=== PATIENT | male | born 1980 | race Two or more races ===

== ENCOUNTER 2018-07-11 10:46 | Inpatient (IN) | payer BC, OTHER ==
[~2018-07-11] VITALS: Ht 180.3 cm; Wt 95.3 kg
--- NOTE | 2018-07-11 10:27 | NUR ---
PRE-ASSESSMENT: ASSESSED PT IN INTAKE OFFICE, PT IS IN STABLE CONDITION , COMPLIANT AND COOPERATIVE. PT'S V/S WNL and is in moderate withdrawal he is being [facility] and last drank 07/10/18, explained protocols and procedure to pt and he verbalized understanding
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
[2018-07-11 12:00] VITALS: BP 139/89
--- NOTE | 2018-07-11 12:30 | NUR ---
CIWA Assessment: CIWA 12, patient continues to present with s/s of withdrawal m/b gross tremors, anxiety, agitation, sweating, fatigue, and generalized discomfort. Will continue to monitor.
[2018-07-11] MEDS ORDERED: LORAZEPAM 2 MG/1 ML VIAL IM PRN (14:45)
[2018-07-11] MEDS ORDERED: LOPERAMIDE HCL 2 MG CAPSULE PO PRN ×2 (14:45)
[2018-07-11] MEDS ORDERED: ONDANSETRON ODT 4 MG TAB.RAPDIS SL PRN (14:45)
[2018-07-11] MEDS ORDERED: CLONIDINE HCL 0.1 MG TABLET PO PRN (14:45)
[2018-07-11] MEDS ORDERED: ONDANSETRON 4 MG/2 ML VIAL IM PRN (14:45)
[2018-07-11] MEDS ORDERED: diphenhydrAMINE 50 MG CAPSULE PO PRN (14:45)
[2018-07-11] MEDS ORDERED: DIAZEPAM 10 MG TABLET PO PRN ×2 (14:45)
[2018-07-11] MEDS ORDERED: 3 DAY TAPER OF VALIUM-SERENITY PROTOCOL PO PRN (14:45)
[2018-07-11] MEDS ORDERED: IBUPROFEN 600 MG TABLET PO PRN (14:45)
[2018-07-11] MEDS ORDERED: HYDROXYZINE PAMOATE 25 MG CAPSULE PO PRN (14:45)
[2018-07-11] MEDS ORDERED: DIAZEPAM 5 MG TABLET PO PRN (14:45)
[2018-07-11] MEDS ORDERED: THIAMINE HCL 200 MG/2 ML VIAL IM ONE (14:45)
--- NOTE | 2018-07-11 15:00 | NUR ---
Taper started: Patient was placed on a 3-day Valium taper as ordered at this time. Per BERTHA PARISI to start now. Addendum: 07/11/18 at 1819 by CESAR CALDERON LVN Note Clarification: Patient was placed on a 3-day Valium taper as ordered at this time. Per BERTHA PARISI to start now, without UDS.
[2018-07-11] MEDS: DIAZEPAM 10 MG TABLET PO SCH ×2 (15:32→20:23)
[2018-07-11 16:00] VITALS: BP 133/89
--- NOTE | 2018-07-11 16:05 | NUR ---
CIWA Assessment: CIWA 11, patient continues to present with s/s of withdrawal related to ETOH m/b increased anxiety, agitation, difficulty concentrating, gross tremors, diaphoresis, fatigue and generalized discomfort. Patient was started on 3-day Valium taper with first dose given at 1530. Will continue to monitor and medicate patient as ordered.
[2018-07-11 16:29] LABS: BASOPHILS % (AUTO) 0.7 % (0.0-2.0); EOSINOPHILS # (AUTO) 0.8 K/uL (0.0-0.7); EOSINOPHILS % (AUTO) 12.9 % (0.0-7.0); HEMATOCRIT 42.9 % (36.7-47.1); HEMOGLOBIN 14.7 g/dL (12.5-16.3); LYMPHOCYTES # (AUTO) 1.8 K/uL (20.0-40.0); LYMPHOCYTES % (AUTO) 31.2 % (20.5-51.5); MEAN CORPUSCULAR HEMOGLOBIN 33.5 uug (23.8-33.4); MEAN CORPUSCULAR HGB CONC 34 g/dL (32.5-36.3); MEAN CORPUSCULAR VOLUME 97.3 fL (73.0-96.2); MONOCYTES # (AUTO) 0.6 K/uL (2.0-10.0); MONOCYTES % (AUTO) 10.3 % (0.0-11.0); NEUTROPHILS # (AUTO) 2.7 K/uL (1.8-8.9); NEUTROPHILS % (AUTO) 44.9 % (38.5-71.5); PLATELET COUNT (AUTO) 165 K/uL (152-348); RED BLOOD CELL COUNT(AUTO) 4.41 MIL/uL (4.06-5.63); WHITE BLOOD COUNT (AUTO) 5.9 K/uL (3.6-10.2)
[2018-07-11 16:37] LABS: ETHANOL < 3 MG/DL (0-0)
[2018-07-11 16:41] LABS: ALANINE AMINOTRANSFERASE 204 U/L (16-63); ALKALINE PHOSPHATASE 122 U/L (50-136); AMYLASE 28 U/L (25-115); ASPARTATE AMINOTRANSFERASE 139 U/L (15-37); BILIRUBIN,TOTAL 0.6 mg/dL (0.2-1.0); CARBON DIOXIDE 26 mmol/L (21-32); CHLORIDE 102 mmol/L (98-107); CREATININE 1.1 mg/dL (0.6-1.3); GLUCOSE 111 mg/dL (74-106); LIPASE 226 U/L (73-393); MAGNESIUM 1.8 mg/dL (1.8-2.4); POTASSIUM 3.8 mmol/L (3.5-5.1); TOTAL PROTEIN, SERUM 6.9 g/dL (6.4-8.2); UREA NITROGEN, BLOOD 14 mg/dL (7-18)
[2018-07-11 17:20] LABS: THYROID STIMULATING HORMONE 2.159 mIU/mL (0.358-3.740)
--- NOTE | 2018-07-11 18:02 | NUR ---
Imodium 4 mg PO given: Patient reported x 3 episodes of loose watery stools. Oral fluids encouraged. Banana given. Medicated patient with Imodium 4 mg PO as ordered. Will monitor for effectiveness.
[2018-07-11 18:13] LABS: *AMPHETAMINE, URINE POSITIVE (NEGATIVE); *BARBITURATE, URINE NEGATIVE (NEGATIVE); *CANNABINOID, URINE NEGATIVE (NEGATIVE); *COCCAINE, URINE NEGATIVE (NEGATIVE); *OPIATE, URINE NEGATIVE (NEGATIVE); *PHENCYCLIDINE SCREEN,URINE NEGATIVE (NEGATIVE)
--- NOTE | 2018-07-11 19:05 | NUR ---
End of Shift Notes: Patient was admitted today for medically supervised ETOH withdrawal. He was placed on a 3-day Valium taper that started today at 1530. VS monitored closely. No significant abnormalities noted. Withdrawal symptoms were closely monitored. Initial CIWA upon admission 12, patient presented with gross tremors, anxiety, sweating, facial flushing, fatigue, generalized discomfort, diarrhea and diaphoresis. Medicated patient with Imodium 4 mg PO as ordered at 1802. Last CIWA 11. Patient verbalizes that Valium has been effective in reducing his withdrawal symptoms. Unable to participate in group and activities due to his withdrawal symptoms. Appetite good. All needs met and attended. Will continue to monitor closely.
--- NOTE | 2018-07-11 19:30 | NUR ---
START OF SHIFT Patient received awake, alert, and oriented x4. Noted to be hypervigilant, fidgety, anxious, worried affect, and restless. Patient was admitted today for ETOH withdrawal and was started on a 3 day Valium taper. Received first dose at 1530 and tolerated well. Patient also received PRN Imodium for loose stool. PRN med was effective with no further episodes of loose stool reported. Last noted CIWA is 11. Will continue to monitor.
--- NOTE | 2018-07-11 20:00 | NUR ---
CIWA Assessment: Patient continues to present with signs and symptoms of ETOH withdrawals m/b anxiety, restlessness, generalized weakness, tremors, intermittent sweats and chills, and hypervigilance. Patient continues on a 3 day taper of Valium. CIWA score is 11. Will continue to monitor.
[2018-07-11 20:09] VITALS: BP 152/77
[2018-07-12 00:12] VITALS: BP 120/73
--- NOTE | 2018-07-12 00:15 | NUR ---
CIWA Assessment: Patient continues to present with anxiety, restlessness, tremors, generalized discomfort, and intermittent chills and sweats. Patient denies the need for medication at the moment. Noted to be easily able to fall back asleep with no further complications. CIWA score is 8.
--- NOTE | 2018-07-12 00:17 | NUR ---
CIWA Assessment: Patient continues to present with signs and symptoms of ETOH withdrawals m/b anxiety, restlessness, generalized weakness, tremors, intermittent sweats and chills, and hypervigilance. Patient continues on a 3 day taper of Valium. CIWA score is 11. Will continue to monitor. Addendum: 07/12/18 at 0020 by OSEI ARGUETA LVN Entered in error - wrong time.
[2018-07-12 04:31] VITALS: BP 116/86
--- NOTE | 2018-07-12 04:37 | NUR ---
CIWA assessment Patient noted in bed with eyes closed and respirations even and unlabored. Vitals rendered. CIWA assessment was unable to be completed due to patient remaining asleep during vitals assessment. Will continue to monitor.
--- NOTE | 2018-07-12 07:07 | NUR ---
END OF SHIFT: Patient is noted lying in bed with eyes closed and even, unlabored respirations. Patient continues on a 3 day valium taper. Patient denies signs and symptoms of withdrawal, but is noted with restlessness, tremulous to touch, anxiety, and hypervigilance. Presents with a worried affect. No PRNs administered during this shift. Last noted CIWA is 8. Patient is noted to sleep 9 hours. All needs attended to promptly. Will endorse to continue plan of care as ordered.
[2018-07-12 08:00] VITALS: BP 117/60
--- NOTE | 2018-07-12 08:00 | NUR ---
Start of Shift Notes/CIWA Assessment: Received report from night nurse. Patient is a 38 year old male admitted for ETOH withdrawal that started his 3-day Valium taper on 07/11/2018 at 1500 yesterday. Taper to continue as scheduled today. Per night report, patient was not given any PRNs during the shift. Last CIWA 8. Slept for a total of 9 hours. Received patient in his room. Alert and oriented x 4. Denies S/I or H/I noted. No AV hallucinations noted. Patient appears flushed, hypervigilant and anxious. Diaphoresis and gross tremors visibly noted. CIWA 14. Educated patient on his current plan of care for the day and his medication regimen. Encouraged oral fluid intake and encouraged group participation to learn new skills to prevent relapse. All needs needs met and attended. Will continue to monitor closely.
[2018-07-12] MEDS: THIAMINE HCL 100 MG TABLET PO SCH (08:31)
[2018-07-12] MEDS: FOLIC ACID 1 MG TABLET PO SCH (08:31)
[2018-07-12] MEDS: MULTIVITAMINS,THERAPEUTIC TABLET PO SCH (08:31)
[2018-07-12] MEDS: DIAZEPAM 5 MG TABLET PO SCH ×3 (08:31→21:52)
[2018-07-12] MEDS ORDERED: TUBERCULIN,PURIF.PROT.DERIV. 5 TU/0.1 ML TEST ID ONE (09:00)
[2018-07-12 12:00] VITALS: BP 120/65
--- NOTE | 2018-07-12 12:40 | NUR ---
CIWA Assessment: CIWA 13, patient continues to present with s.s of withdrawal m/b gross tremors, anxiety, agitation, irritability, diaphoresis and generalized discomfort. Patient was unable to participate in group and activities and verbalizes feeling tired. Will continue to monitor and medicate patient as ordered.
--- NOTE | 2018-07-12 12:47 | NUR ---
Therapist prompted client to attend group therapy.
[2018-07-12 16:00] VITALS: BP 129/77
--- NOTE | 2018-07-12 16:44 | NUR ---
CIWA Assessment: CIWA 13, patient continues to present with ss/s of ETOH withdrawal m/b gross tremors, anxiety, agitation, fatigue, malaise, diaphoresis and generalized discomfort. Unable to participate in group and activities. Oral fluids encouraged.
--- NOTE | 2018-07-12 19:05 | NUR ---
End of Shift Notes: Patient continues to be on 3-day Valium taper as ordered to manage symptoms related to ETOH withdrawal. VS monitored closely. No significant abnormalities noted. Withdrawal symptoms were closely monitored. Initial CIWA upon admission 14, patient presented with gross tremors, anxiety, sweating, facial flushing, fatigue, generalized discomfort, and diaphoresis. Last CIWA 13. Patient verbalizes that Valium has been effective in reducing his withdrawal symptoms. Unable to participate in group and activities due to his withdrawal symptoms. Appetite good. All needs met and attended. Will continue to monitor closely.
--- NOTE | 2018-07-12 19:10 | NUR ---
Start of Shift Received 38 year old male pt admitted 07/11/18 to [facility] for medically supervised withdrawal from ETOH. Pt currently on day 2 of 3 day Valium taper which he is tolerating well. No PRN medications given during day shift. Last CIWA 13 @ 1600. Pt participating in group.
--- NOTE | 2018-07-12 20:00 | NUR ---
[place] [id number]
[2018-07-12 20:10] VITALS: BP 144/97
--- NOTE | 2018-07-13 00:08 | NUR ---
CIWA deferred/ Vitals refused CIWA deferred and vitals refused. Pt in bed resting with eyes closed. Respirations are even and unlabored.Bed low, side rails up x 2, call tilley in reach. Continue to monitor.
--- NOTE | 2018-07-13 04:10 | NUR ---
CIWA deferred/Vitals refused Pt resting with eyes closed. Respirations even and unlabored. CIWA deferred and vitals refused.
--- NOTE | 2018-07-13 06:47 | NUR ---
End of Shift Endorsing 38 year old male pt admitted 07/11/18 to [facility] for medically supervised withdrawal from ETOH. Pt currently on day 3 of 3 day Valium taper which he is tolerating well. No PRN medications given during battery mechanic. Last CIWA 12 @ 1999. PO intake 855ml, voided x 1, BM x 0, and slept 8 hours. Pt in bed resting with eyes closed. Respirations are even and unlabored. Bed low, side rails up x 2, call tilley in reach.
[2018-07-13 07:07] LABS: HEPATITIS B SURFACE AG Negative (Negative)
[2018-07-13 07:46] LABS: BILIRUBIN,TOTAL 0.3 mg/dL (0.2-1.0); CREATININE 0.9 mg/dL (0.6-1.3); POTASSIUM 4.1 mmol/L (3.5-5.1); TOTAL PROTEIN, SERUM 6.4 g/dL (6.4-8.2)
[2018-07-13 08:00] VITALS: BP 134/83
--- NOTE | 2018-07-13 08:07 | NUR ---
START OF SHIFT: Received Pt A/O X 4. He presents with anxious mood and congruent affect. He reports anxiety and restlessness. CIWA 8. Modified Valium taper in progress to manage s/s of w/d. He states he is attending groups. Encouraged increased fluids to assist in facilitating detox process. Will continue to monitor and offer support.
[2018-07-13] MEDS: MULTIVITAMINS,THERAPEUTIC TABLET PO SCH (08:44)
[2018-07-13] MEDS: THIAMINE HCL 100 MG TABLET PO SCH (08:44)
[2018-07-13] MEDS: FOLIC ACID 1 MG TABLET PO SCH (08:44)
[2018-07-13] MEDS: DIAZEPAM 5 MG TABLET PO SCH ×2 (08:44→22:33)
--- NOTE | 2018-07-13 10:11 | NUR ---
therapist prompted client to attend group therapy.
[2018-07-13 12:00] VITALS: BP 147/94
--- NOTE | 2018-07-13 12:20 | NUR ---
Noon CIWA 8 he reports anxiety,restlessness and intermittent sweats.
[2018-07-13 16:00] VITALS: BP 119/72
--- NOTE | 2018-07-13 18:49 | NUR ---
END OF SHIFT: Pt continues on modified Valium taper to manage s/s of w/d which include anxiety ,restlessness and intermittent sweats. Last CIWA 7. He interacted with peers and attended groups. He states the detox meds are effective.He verbalized enthusiasm toward recovery. Will pass shift report to oncoming night nurse.
--- NOTE | 2018-07-13 19:15 | NUR ---
Start of Shift Received 38 year old male patient admitted 07/11/18 to [facility] for medically supervised withdrawal from ETOH. Pt did not receive any PRN medications on the day shift. Pt currently on day 3 of 3 day Valium taper which he is tolerating well. Last CIWA 7 @1600. Pt currently participating in group activities. Pt is flushed, mild anxiety noted, cooperative, and easily distracted. Will continue to monitor.
--- NOTE | 2018-07-13 20:00 | NUR ---
CIWA 6 Pt with mild anxiety, fidgety, and flushed.
[2018-07-13 20:08] VITALS: BP 148/94
--- NOTE | 2018-07-14 | NUR ---
CIWA deferred/Vitals refused Pt resting in bed with eyes closed. Respirations are even and unlabored. CIWA deferred and vitals refused. Will continue to monitor.
--- NOTE | 2018-07-14 04:05 | NUR ---
CIWA deferred/Vitals refused Pt resting in bed with eyes closed. Respirations are even and unlabored. CIWA deferred and vitals refused. Will continue to monitor.
--- NOTE | 2018-07-14 06:46 | NUR ---
End of Shift Endorsing 38 year old male patient admitted 07/11/18 to [facility] for medically supervised withdrawal from ETOH. Pt did not receive any PRN medications on the returned goods sorter. Pt completed 3 day Valium taper which he tolerated well. Last CIWA 6 @1999. PO intake 1000 ml, voided x 2, BM x 1, and slept 7.5 hours. Pt in bed resting with eyes closed. Respirations are even and unlabored. Bed low, side rails up x 2, and call tilley in reach.
[2018-07-14 07:56] LABS: BILIRUBIN,DIRECT 0.1 mg/dL (0.0-0.2); BILIRUBIN,TOTAL 0.3 mg/dL (0.2-1.0); TOTAL PROTEIN, SERUM 6.7 g/dL (6.4-8.2)
[2018-07-14 08:00] VITALS: BP 130/91
--- NOTE | 2018-07-14 08:05 | NUR ---
START OF SHIFT: Received Pt A/O X 4. He presents with anxious mood. He reports intermittent anxiety. CIWA 6. Modified Valium taper completed yesterday. Vitamins administered as ordered. Encouraged group attendance to improve coping skills to improve coping skills and prevent relapse. Will continue to monitor and offer support.
[2018-07-14] MEDS: THIAMINE HCL 100 MG TABLET PO SCH (08:18)
[2018-07-14] MEDS: MULTIVITAMINS,THERAPEUTIC TABLET PO SCH (08:18)
[2018-07-14] MEDS: FOLIC ACID 1 MG TABLET PO SCH (08:18)
[2018-07-14 12:00] VITALS: BP 144/86
--- NOTE | 2018-07-14 12:05 | NUR ---
Noon CIWA 6. He reports anxiety and restlessness.
[2018-07-14 16:00] VITALS: BP 148/90
--- NOTE | 2018-07-14 18:54 | NUR ---
END OF SHIFT: Pt completed modified Valium taper. Last CIWA 7. He interacted with peers and attended groups. He is scheduled for discharge in am tomorrow to [facility] and verbalized enthusiasm toward recovery. Will pass shift report to oncoming night nurse.
--- NOTE | 2018-07-14 19:30 | NUR ---
CIWA 6 Pt up ad cassidy. Mild anxiety, agitation and fidgety. CIWA 6
--- NOTE | 2018-07-14 19:30 | NUR ---
Start of Shift Received 38 year old male patient admitted 07/11/18 to [facility] for medically supervised withdrawal from ETOH. Pt completed Valium taper and has planned discharge to [facility] in am 07/15/18. Last CIWA 7 @1600. Pt received no PRN medications on day shift. Pt awake, alert, and oriented. Pt denies symptoms of withdrawal. Noted to be anxious, yet looking forward to going to rehab in am. Pt pleasant, cooperative, and participating in activities. Bed low, side rails up x 2, and call tilley in reach. Will continue to monitor.
[2018-07-14 20:04] VITALS: BP 146/98
--- NOTE | 2018-07-15 00:09 | NUR ---
CIWA deferred/Vitals refused Pt resting with eyes closed. Respirations are even and unlabored. Continue to monitor.
--- NOTE | 2018-07-15 04:08 | NUR ---
CIWA deferred/Vitals refused Pt resting with eyes closed. Respirations are even and unlabored. Continue to monitor.
--- NOTE | 2018-07-15 07:00 | NUR ---
End of Shift Endorsing 38 year old male patient admitted 07/11/18 to [facility] for medically supervised withdrawal from ETOH. Pt completed Valium taper and has planned discharge to [facility] today 07/15/18. Last CIWA 6 @1999. Pt received no PRN medications on steward/stewardess night. PO intake 750 ml, voided x 3, BM x 0, and slept x 9 hours. Bed low, side rails up x 2, and call tilley in reach.
[2018-07-15 08:00] VITALS: BP 130/92
--- NOTE | 2018-07-15 08:01 | NUR ---
START OF SHIFT NOTE Received report from night nurse, 38 year old male admitted for ETOH withdrawal and completed his Valium taper tolerated well. Per endorsement patient did not receive any PRN'S, slept for 9 hours and last CIWA-6. Received patient alert awake oriented x4 denies any anxiety, agitation. Breathing normal no SOB noted. respiration even non labored. Skin intact warm and dry to touch. [facility]. All safety measures in place. Will cont to monitor.
[2018-07-15] MEDS: FOLIC ACID 1 MG TABLET PO SCH (08:14)
[2018-07-15] MEDS: THIAMINE HCL 100 MG TABLET PO SCH (08:14)
[2018-07-15] MEDS: MULTIVITAMINS,THERAPEUTIC TABLET PO SCH (08:14)
--- NOTE | 2018-07-15 09:40 | NUR ---
DISCHARGE NOTE Patient is alert awake oriented discharge from [facility] in stable condition. Vital signs WNL. Skin intact warm and dry to touch. Patient denies any SI/HI. All discharge paper work completed signed and dated. All belongings returned to the patient. Patient discharge from [facility] in stable condition at 0940 on 07/15/18.
== END 2018-07-15 09:40 | disposition other institution (70) | DRG 895 ==
LOC: SRC 10:46
PROVIDERS: ADMIT Family Medicine Addiction Medicine; ATTEND Family Medicine Addiction Medicine
DX: F10.230 Alcohol dependence with withdrawal, uncomplicated (principal); F15.23 Other stimulant dependence with withdrawal; Y90.9 Presence of alcohol in blood, level not specified; Z72.0 Tobacco use; Z81.1 Family history of alcohol abuse and dependence; R74.0 Nonspecific elevation of levels of transaminase and lactic acid dehydrogenase [LDH]; R73.9 Hyperglycemia, unspecified; E88.09 Other disorders of plasma-protein metabolism, not elsewhere classified; D75.89 Other specified diseases of blood and blood-forming organs; R03.0 Elevated blood-pressure reading, without diagnosis of hypertension
CPT/HCPCS: 36415; 70030-TC; 80307; 80324; 80346; 83690; 83735; 84443; 85025; 86580; 86592; 86705; 86803; 87340; 87806; G0480; J3411